=== PATIENT | female | born 1995 | race Caucasian/White ===

== ENCOUNTER 2016-09-01 10:54 | Emergency (ER) | payer OTHER ==
[~2016-09-01] VITALS: Ht 152.4 cm; Wt 50.1 kg
[~2016-09-01 10:54] MED LIST: BCPILLS PO
[2016-09-01 10:59] VITALS: Ht 152.4 cm; Wt 50.1 kg
[2016-09-01] MEDS ORDERED: MECLIZINE HCL 25 MG TAB PO STA (11:09)
[2016-09-01] MEDS ORDERED: SODIUM CHLORIDE 0.9% 1000ML 1,000 ML IV STA (11:09)
[2016-09-01] MEDS ORDERED: LORAZEPAM 0.5 MG TAB SL STA (11:12)
[2016-09-01] MEDS ORDERED: ACET-1256 PO (11:18)
--- NOTE | 2016-09-01 11:38 | DIAGNOSTIC IMAGING REPORT ---
CHEST ONE VIEW PORTABLE CLINICAL HISTORY: Altered mental status. Weakness. COMPARISON STUDY: No previous studies for comparison. FINDINGS: The cardiac and mediastinal contours are normal. There is no evidence of focal pulmonary consolidation. There is no evidence of failure. No pleural effusions are visualized.[ IMPRESSION: No active disease in the chest. Electronically signed by: Cam Arciniega M.D. 09/01/2016 11:36 AM Dictated Date/Time: 09/01/2016 11:36 AM
[2016-09-01 11:52] LABS: BASO % 0.1 %; BASO ABS # 0.01 K/uL (0-0.2); COMPLETE YES; EOS % 0.6 %; HEMATOCRIT 41.4 % (37-47); IG% 0.1 %; LYMPH % 28.8 %; LYMPH ABS # 2.49 K/uL (1.2-3.4); MEAN CELL VOLUME 85.4 fL (80-100); MEAN CORPUSCULAR HEMOGLOBIN 30.1 pg (25-34); MEAN CORPUSCULAR HGB CONC 35.3 g/dl (32-36); MEAN PLATELET VOLUME 9.7 fL (7.4-10.4); MONO % 5.7 %; NEUT % 64.7 %; PLATELET COUNT 307 K/uL (130-400); RED BLOOD COUNT 4.85 M/uL (4.2-5.4); WHITE BLOOD COUNT 8.65 K/uL (4.8-10.8)
[2016-09-01 12:13] LABS: BLOOD UREA NITROGEN 9 mg/dl (7-18); CALCIUM 9.6 mg/dl (8.5-10.1); CARBON DIOXIDE 24 mmol/L (21-32); CHLORIDE 108 mmol/L (98-107); CREATININE 0.79 mg/dl (0.60-1.20); GLUCOSE 84 mg/dl (70-99); MAGNESIUM 2.2 mg/dl (1.8-2.4); POTASSIUM 3.9 mmol/L (3.5-5.1); SODIUM 143 mmol/L (136-145)
--- NOTE | 2016-09-01 12:22 | EMERGENCY ROOM VISIT NOTE ---
History Report prepared by Ifrahibcapri: Magdalena Thompson Under the Supervision of: Dr. Clemente Simons D.O. First contact with patient: 11:03 Chief Complaint: DIZZY Stated Complaint: DOUBLE VISION, DIZZY, UNBALANCED, HEAVY HEAD History of Present Illness The patient is a 21 year old female who presents to the Emergency Room with complaints of worsening dizziness for the past 5 days. She is accompanied by her parents, who are visiting from [place]. The patient reports the dizziness feels like her head becomes "heavy", she feels unsteady on her feet and experiences double vision and a sensation of being "unable to focus". 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 She reports the symptoms usually occur when she is reading, but states they seem to be happening more and more frequently now, and when she is doing something other than reading. The patient denies any nausea, vomiting, recent illnesses or injuries. She also denies any fevers, chills, chest pain or shortness of breath. Source of History: patient Onset: 5 days [employer] Position: other (global) Timing: worsening Associated Symptoms: No SOB, No chest pain, No chills, No fevers, No nausea , No vomiting Review of Systems See HPI for pertinent positives & negatives. A total of 10 systems reviewed and were otherwise negative. Past Medical & Surgical Medical Problems: (1) Asthma (2) Bronchitis Family History Gallbladder disease Hypertension Social History Smoking Status: Never Smoker Smokeless Tobacco Use: No Alcohol Use: occasionally Drug Use: none Marital Status: single Housing Status: lives with roommate Occupation Status: [employer] student Current/Historical Medications Scheduled Control Pills ( Control Pills), 1 TAB PO DAILY Scheduled PRN Acetaminophen (Tylenol), 1,000 MG PO Q8 PRN for Pain or Fever Meclizine Hcl (Meclizine Hcl), 1 TAB PO TID PRN for Dizziness or Vertigo Allergies Coded Allergies: No Known Allergies (Unverified , 09/01/16) Physical Exam Vital Signs Date Time Temp Pulse Resp B/P Pulse Ox O2 Delivery O2 Flow Rate FiO2 09/01/16 14:34 36.9 75 16 115/72 100 09/01/16 14:30 75 16 115/72 100 09/01/16 12:50 87 18 124/76 100 Room Air 09/01/16 12:11 71 1/22/17 10:59 36.9 114 18 157/95 100 Room Air Physical Exam VITAL SIGNS: were reviewed as above. GENERAL:Non-toxic in appearance. SKIN: Warm dry and pink. HEAD: Normocephalic and atraumatic. OROPHARYNX: Is clear and moist NECK: Supple without lymphadenopathy or meningismus. LUNGS: clear. HEART: Regular rate and rhythm. ABDOMEN: Soft and nontender. EXTREMITIES: Warm and well perfused. NEUROLOGICALLY: Awake alert and oriented without focal deficit. Cranial nerves 2 -12 are intact. There is no pronator drift. Cerebellar testing is within normal limits. There is no nystagmus. There is no facial droop. Speech is clear. Vision is grossly normal. MUSCULOSKELETAL: Good muscle tone. No evidence of trauma. Medical Decision & Procedures ER Provider Diagnostic Interpretation: This X-Ray was reviewed and interpreted by myself and the radiologist. CHEST ONE VIEW PORTABLE IMPRESSION: No active disease in the chest. Electronically signed by: Cam Arciniega M.D. 09/01/2016 11:36 AM This MRI was reviewed and interpreted by the radiologist and reviewed by myself. MRI OF THE BRAIN WITHOUT AND WITH IV CONTRAST IMPRESSION: Normal study. Electronically signed by: Cam Arciniega M.D. 09/01/2016 2:01 PM Laboratory Results 09/01/16 11:44 Red Blood Count 4.85, Mean Corpuscular Volume 85.4, Mean Corpuscular Hemoglobin 30.1, Mean Corpuscular Hemoglobin Concent 35.3, Mean Platelet Volume 9.7, Neutrophils (%) (Auto) 64.7, Lymphocytes (%) (Auto) 28.8, Monocytes (%) (Auto) 5.7, Eosinophils (%) (Auto) 0.6, Basophils (%) (Auto) 0.1, Neutrophils # (Auto) 5.60, Lymphocytes # (Auto) 2.49, Monocytes # (Auto) 0.49, Eosinophils # (Auto) 0.05, Basophils # (Auto) 0.01 09/01/16 11:44 Test 09/01/16 11:44 09/01/16 14:14 White Blood Count 8.65 K/uL (4.8-10.8) Red Blood Count 4.85 M/uL (4.2-5.4) Hemoglobin 14.6 g/dL (12.0-16.0) Hematocrit 41.4 % (37-47) Mean Corpuscular Volume 85.4 fL (80-100) Mean Corpuscular Hemoglobin 30.1 pg (25-34) Mean Corpuscular Hemoglobin Concent 35.3 g/dl (32-36) Platelet Count 307 K/uL (130-400) Mean Platelet Volume 9.7 fL (7.4-10.4) Neutrophils (%) (Auto) 64.7 % Lymphocytes (%) (Auto) 28.8 % Monocytes (%) (Auto) 5.7 % Eosinophils (%) (Auto) 0.6 % Basophils (%) (Auto) 0.1 % Neutrophils # (Auto) 5.60 K/uL (1.4-6.5) Lymphocytes # (Auto) 2.49 K/uL (1.2-3.4) Monocytes # (Auto) 0.49 K/uL (0.11-0.59) Eosinophils # (Auto) 0.05 K/uL (0-0.5) Basophils # (Auto) 0.01 K/uL (0-0.2) RDW Standard Deviation 40.9 fL (36.4-46.3) RDW Coefficient of Variation 13.2 % (11.5-14.5) Immature Granulocyte % (Auto) 0.1 % Immature Granulocyte # (Auto) 0.01 K/uL (0.00-0.02) Anion Gap 11.0 mmol/L (3-11) Est Creatinine Clear Calc Drug Dose 81.6 ml/min Estimated GFR () 124.9 Estimated GFR (Non- 107.8 BUN/Creatinine Ratio 11.0 (10-20) Calcium Level 9.6 mg/dl (8.5-10.1) Magnesium Level 2.2 mg/dl (1.8-2.4) Total Bilirubin 0.6 mg/dl (0.2-1) Direct Bilirubin 0.2 mg/dl (0-0.2) Aspartate Amino Transf (AST/SGOT) 13 U/L (15-37) Alanine Aminotransferase (ALT/SGPT) 21 U/L (12-78) Alkaline Phosphatase 62 U/L (45-117) Total Creatine Kinase 73 U/L (26-192) Creatine Kinase MB < 0.5 ng/ml (0.5-3.6) Creatine Kinase MB Ratio (0-3.0) Total Protein 7.9 gm/dl (6.4-8.2) Albumin 4.2 gm/dl (3.4-5.0) Thyroid Stimulating Hormone (TSH) 2.460 uIu/ml (0.300-4.500) Urine Color YELLOW Urine Appearance CLEAR (CLEAR) Urine pH 6.5 (4.5-7.5) Urine Specific [place] 1.006 (1.000-1.030) Urine Protein NEG (NEG) Urine Glucose (UA) NEG (NEG) Urine Ketones 1+ (NEG) Urine Occult Blood NEG (NEG) Urine Nitrite NEG (NEG) Urine Bilirubin NEG (NEG) Urine Urobilinogen NEG (NEG) Urine Leukocyte Esterase NEG (NEG) Urine WBC (Auto) 0 /hpf (0-5) Urine RBC (Auto) 0-4 /hpf (0-4) Urine Hyaline Casts (Auto) 0 /lpf (0-5) Urine Epithelial Cells (Auto) 5-10 /lpf (0-5) Urine Bacteria (Auto) NEG (NEG) Laboratory results as stated above per my review. Medications Administered Medications (Trade) Dose Ordered Sig/Kaya Route Start Time Stop Time Status Last Admin Dose Admin Sodium Chloride (Nss 1000ml) 1,000 ml @ 999 mls/hr Q1H1M STAT IV 09/01/16 11:09 09/01/16 12:09 DC 09/01/16 11:47 999 MLS/HR Meclizine HCl (Antivert Tab) 25 mg NOW STAT PO 09/01/16 11:09 09/01/16 11:12 DC 09/01/16 11:30 25 MG Lorazepam (Ativan Tab) 0.5 mg NOW STAT SL 09/01/16 11:12 09/01/16 11:13 DC 09/01/16 11:30 0.5 MG ECG Indication: weakness (dizziness) Rate (beats per minute): 79 Rhythm: normal sinus (normal sinus rhythm) Findings: no acute ischemic change, no ectopy ED Course 1104: Previous medical records were reviewed. The patient was evaluated in room C9. A complete history and physical examination was performed. 1109: Meclizine HCl 25 mg PO, NSS 1000 ml @ 999 mls/hr IV. 1112: Lorazepam 0.5 mg SL. 1400: Gadavist 5 mmol IV. 1415: I reevaluated the patient. She is feeling much better. I discussed her results and discharge instructions and she and her parents verbalized complete understanding and agreement. Medical Decision Differential includes acute coronary syndrome, myocardial infarction, CVA, TIA, anemia, infection, pneumonia, UTI, pyelonephritis, poor nutrition, dehydration, electrolyte disturbance,hypoglycemia. This is a 21-year-old female who presents to the ED with a chief complaint of having dizzy spells and not able to focus her eyes. The patient states that her symptoms started on Friday. She also feels off balance. She denies any nausea vomiting or recent illness. She denies any trauma. She does have a history of convergence insufficiency with regards to her eyes. She has not had problems with this recently. The patient denies any chest pains or shortness of breath. She denies any focal weakness to an arm or leg. Her initial heart rate revealed a tachycardia. Neurologic exam was completely normal. No visual disturbance at this time. CBC is normal, CMP is normal. TSH is normal. Chest x-ray did not show acute disease. Brain MRI combo did not show any abnormalities. The patient was told the results. She is felt to be stable for discharge. Impression Primary Impression: Dizziness Scribe Attestation The scribe's documentation has been prepared under my direction and personally reviewed by me in its entirety. I confirm that the note above accurately reflects all work, treatment, procedures, and medical decision making performed by me. Departure Information Dispostion Home / Self-Care Prescriptions Meclizine Hcl (MECLIZINE HCL) 25 Mg Tab 1 TAB PO TID Y for Dizziness or Vertigo for 10 Days, #30 TAB Prov: Clemente Simons D.O. 09/01/16 Referrals No Doctor, Assigned (PCP) Patient Instructions My [facility] Additional Instructions Your testing today including the MRI of the brain was normal. Follow-up with your doctor for recheck this week. Return for any worsening or new symptoms.
[2016-09-01 12:33] LABS: ALKALINE PHOSPHATASE 62 U/L (45-117); ALT/SGPT 21 U/L (12-78); AST/SGOT 13 U/L (15-37)
[2016-09-01] MEDS ORDERED: GADAVIST IV PRN (14:00)
--- NOTE | 2016-09-01 14:03 | DIAGNOSTIC IMAGING REPORT ---
MRI OF THE BRAIN WITHOUT AND WITH IV CONTRAST CLINICAL HISTORY: dizziness, diplopia intermittent COMPARISON STUDY: No previous studies for comparison. TECHNIQUE: MRI of the brain was performed from the vertex to the skull base utilizing various T1 and T2 weighted sequences. Following the IV administration of 5 mL of Gadavist contrast, additional enhanced images were obtained. FINDINGS: Sagittal T1, axial diffusion, proton density and T2 weighted axial, coronal FLAIR, and pre and post axial T1-weighted images were acquired. These were supplemented with post gadolinium coronal T1 weighted images. No intra or extra-axial mass lesions are visualized. Axial diffusion-weighted images reveal no evidence of acute or subacute infarction. There is no evidence of ventricular dilatation. Proton density T2-weighted and FLAIR images reveal no significant intraparenchymal signal abnormalities. There are no abnormal flow voids. There is no evidence of pathologic enhancement. IMPRESSION: Normal study. Electronically signed by: Cam Arciniega M.D. 09/01/2016 2:01 PM Dictated Date/Time: 09/01/2016 2:00 PM
[2016-09-01] MEDS ORDERED: MECL1TAB42 PO (14:26)
[2016-09-01 14:34] VITALS: BP 115/72; PULSE 75; TEMP 36.9; O2SAT 100
[2016-09-01 14:35] LABS: URINE APPEARANCE CLEAR (CLEAR); URINE BILIRUBIN NEG (NEG); URINE COLOR YELLOW; URINE NITRITE NEG (NEG); URINE PH 6.5 (4.5-7.5); URINE SPECIFIC GRAVITY 1.006 (1.000-1.030); UROBILINOGEN NEG (NEG); ZZUR CULT IF INDIC CLEAN CATCH NO
[2016-09-01 14:43] LABS: MANUAL MICROSCOPIC REQUIRED? NO; REVIEW REQ? NO
== END 2016-09-01 14:36 | disposition home or self-care (01) ==
LOC: C.EDB 10:57 → C.EDC 14:36
DX: R42 Dizziness and giddiness (principal); H53.2 Diplopia; H51.11 Convergence insufficiency; J45.909 Unspecified asthma, uncomplicated; Z82.49 Family history of ischemic heart disease and other diseases of the circulatory system